=== PATIENT | male | born 1990 | race Caucasian/White ===

== ENCOUNTER 2016-05-30 23:43 | Emergency (ER) | payer OTHER ==
[~2016-05-30] VITALS: Ht 175.3 cm; Wt 100.0 kg
[2016-05-31 00:07] VITALS: BP 150/95
== END 2016-05-31 01:08 | disposition admitted as inpatient to this hospital (09) ==
LOC: ERH 23:43
DX: R03.0 Elevated blood-pressure reading, without diagnosis of hypertension (principal)
CPT/HCPCS: 93005; 93010; 99281

== ENCOUNTER 2016-05-31 02:54 | Emergency (ER) | payer OTHER ==
[~2016-05-31] VITALS: Ht 175.3 cm; Wt 81.6 kg
--- NOTE | 2016-05-31 03:09 | ED GENERAL ADULT ---
History of Present Illness General Chief Complaint: General Adult Stated Complaint: " PER PT CP,HIGH PRESSURE,TEJEDA" Source: patient, family Exam Limitations: language barrier Vital Signs & Intake/Output Vital Signs & Intake/Output Vital Signs Date Time Temp Pulse Resp B/P Pulse O2 O2 Flow FiO2 Ox Delivery Rate 05/31 0455 96.8 88 18 146/76 100 Room Air 05/31 0445 100 Room Air 05/31 0308 98.6 57 18 154/83 100 Room Air Allergies Coded Allergies: No Known Drug Allergies (05/31/16) Triage Nurses Notes Reviewed? yes Onset: Gradual Duration: waxing and waning Timing: recent history Injury Environment: home Severity: mild No Modifying Factors: none Associated Symptoms: chest pain, anxiety HPI: This is a 25-year-old male presents to the ER for chief complaint of elevated blood pressure today. Patient is visiting from [place] and states that he took a couple of doses propranolol. He has needed to take them 3 times this week for elevated blood pressure. Patient admits to some chest pressure and a little bit of headache when the boat pressure is elevated. Today he noticed it was 180 systolic. 2 months ago he was seen in [place] for similar symptoms and was given a prescription for propranolol to take as needed for episodes of high blood pressure. He was not instructed to take it on a daily basis. Currently he is visiting family here. Denies any word vision or confusion. Positive family history of hypertension. He is a nonsmoker nondrinker. Does not use any drugs. Past History Travel History Traveled to [place] past 21 day No Medical History Any Pertinent Medical History? see below for history Cardiovascular: hypertension Surgical History Surgical History: none Psychosocial History What is your primary language French Family History Hx Contributory? No Review of Systems Review of Systems Constitutional: Denies: chills, fever. EENTM: Reports: no symptoms. Respiratory: Reports: no symptoms. Cardiovascular: Reports: chest pain. Denies: palpitations, peripheral edema. GI: Denies: abdominal pain. Genitourinary: Reports: no symptoms. Musculoskeletal: Reports: no symptoms. Skin: Reports: no symptoms. Neurological/Psychological: Reports: anxiety, headache. Hematologic/Endocrine: Denies: bruising, bleeding. Immunologic/Allergic: Reports: no symptoms. All Other Systems: Reviewed and Negative Physical Exam Physical Exam General Appearance: well developed/nourished, alert, awake, anxious Head: atraumatic, active bleeding Eyes: Bilateral: EOMI. Ears, Nose, Throat: normal pharynx, normal ENT inspection, hearing grossly normal Neck: normal inspection, supple, full range of motion Respiratory: normal breath sounds, chest non-tender, no respiratory distress Cardiovascular: regular rate/rhythm Peripheral Pulses: 2+ radial (R), 2+ radial (L) Gastrointestinal: normal bowel sounds, soft, non-tender Back: normal inspection, normal range of motion Extremities: normal inspection, normal capillary refill, normal range of motion, no edema Neurologic/Psych: no motor/sensory deficits, awake, alert, oriented x 3 Skin: intact, normal color, warm/dry Core Measures ACS in differential dx? No CVA/TIA Diagnosis: No Severe Sepsis Present: No Septic Shock Present: No Progress Differential Diagnoses I considered the following diagnoses in my evaluation of the patient: [HTN, ANXIETY, END ORGAN DAMAGE] Plan of Care: Orders Procedure Date/time Status URINALYSIS 05/31 326 Complete TROPONIN LEVEL 05/31 326 Complete COMPREHENSIVE METABOLIC PANEL 05/31 326 Complete CBC WITHOUT DIFFERENTIAL 05/31 326 Complete EKG 05/31 255 Active Laboratory Tests 05/31/16 0348: Urine Color YEL, Urine Clarity CLEAR, Urine pH 6.0, Ur Specific Delta 1.025, Urine Protein NEG, Urine Ketones NEG, Urine Nitrite NEG, Urine Bilirubin NEG, Urine Urobilinogen 0.2, Ur Leukocyte Esterase NEG, Ur Microscopic EXAM NOT REQUIRED, Urine Hemoglobin NEG, Urine Glucose NEG 05/31/16 0345: Anion Gap 10, Estimated GFR > 60, BUN/Creatinine Ratio 18.9, Glucose 108 H, Calcium 9.4, Total Bilirubin 0.6, AST 24, ALT 33, Alkaline Phosphatase 49, Troponin I < 0.01, Total Protein 7.3, Albumin 4.7, Globulin 2.6, Albumin/ Globulin Ratio 1.8, CBC w Diff NO MAN DIFF REQ, RBC 4.84, MCV 84.8, MCH 28.6, RDW 12.9, MPV 8.2, Gran % 65.9, Lymphocytes % 25.3, Monocytes % 6.9, Eosinophils % 1.5, Basophils % 0.4, Absolute Granulocytes 4.4, Absolute Lymphocytes 1.7, Absolute Monocytes 0.5, Absolute Eosinophils 0.1, Absolute Basophils 0, PUBS MCHC 33.7 No evidence of end organ damage. bp 146/76. Symptom free at this time. Patient to return to [place] this week and will follow up with his doctor regarding elevated blood pressures. (PATTIE OQUENDO,DEN) Initial ED EKG: NSR Departure Departure Time of Disposition: [id number] Disposition: HOME OR SELF CARE Condition: Stable Clinical Impression Primary Impression: Hypertension Referrals: UNKNOWN (PCP/Family) Additional Instructions: Monitor blood pressure daily. If elevated start taking your blood pressure medications daily. When you return to [facility] and please follow-up with primary care physician. Departure Forms: Customer Survey General Discharge Information Critical Care Note Critical Care Note Critical Care Time: non-applicable
[2016-05-31 03:54] LABS: ABSOLUTE BASOPHIL COUNT 0 /CUMM (0.0-0.2); ABSOLUTE EOSINOPHIL COUNT 0.1 /CUMM (0.0-0.7); ABSOLUTE GRANULOCYTE CT 4.4 /CUMM (1.4-6.5); ABSOLUTE LYMPH COUNT 1.7 /CUMM (1.2-3.4); ABSOLUTE MONOCYTE COUNT 0.5 /CUMM (0.10-0.60); BASOPHIL % 0.4 % (0.0-2.0); EOSINOPHIL % 1.5 % (0-5); GRANULOCYTE % 65.9 % (42.2-75.2); MEAN CORPUSCULAR HGB 28.6 PG (27.0-31.0); MEAN CORPUSCULAR HGB CONC 33.7 G/DL (33.0-37.0); MEAN CORPUSCULAR VOLUME 84.8 FL (80.0-94.0); MEAN PLATELET VOLUME 8.2 FL (7.4-10.4); PLATELET COUNT 214 /CUMM (130-400); RBC DISTRIBUTION WIDTH 12.9 % (11.5-14.5); RED BLOOD CELL CT 4.84 /CUMM (4.70-6.10); WHITE BLOOD CELL COUNT 6.7 /CUMM (4.8-10.8)
[2016-05-31 04:55] VITALS: BP 146/76
== END 2016-05-31 04:56 ==
LOC: ERH 02:54
PROVIDERS: Emergency Medicine
DX: I10 Essential (primary) hypertension (principal); R51 Headache
CPT/HCPCS: 81003; 93005; 93010